=== PATIENT | male | born 1990 | race American Indian/Alaskan Native ===

== ENCOUNTER 2018-11-21 22:50 | Emergency (ER) | payer MEDICAID ==
[~2018-11-21] VITALS: Ht 170.2 cm; Wt 58.5 kg
[2018-11-21 23:43] VITALS: BP 122/75
== END 2018-11-21 23:44 | disposition home or self-care (01) ==
LOC: ER 22:50
DX: M60.271 Foreign body granuloma of soft tissue, not elsewhere classified, right ankle and foot (principal); L03.031 Cellulitis of right toe; F17.200 Nicotine dependence, unspecified, uncomplicated; F12.10 Cannabis abuse, uncomplicated
CPT/HCPCS: 99283

== ENCOUNTER 2022-07-16 17:14 | Emergency (ER) | payer MEDICAID, OTHER ==
[~2022-07-16] VITALS: Ht 170.2 cm; Wt 75.0 kg
[2022-07-16] MEDS ORDERED: KETOROLAC 30MG/ML VIAL IV STA (18:23)
[2022-07-16] MEDS ORDERED: SODIUM CHLORIDE 0.9% 1,000 ML IV ONE (18:30)
[2022-07-16 19:33] LABS: BASOPHILS % 0.2 % (0.0-2.0); HEMATOCRIT. 40.7 % (42.0-52.0); HEMOGLOBIN. 13.9 g/dL (14.0-18.0); LYMPHOCYTES % 16.8 % (20.0-50.0); MEAN CORPUSCULAR VOLUME 90.4 fL (80.0-94.0); MEAN PLATELET VOLUME 9.1 fl (7.4-10.4); MONOCYTES % 10.6 % (2.0-8.0); NEUTROPHILS % 72.4 % (40.0-76.0); PLATELET 173 x1000/uL (130-400); RED CELL DISTRIBUTION WIDTH 13.8 % (11.6-14.6)
[2022-07-16 19:35] LABS: CHLORIDE 101 mEq/L (98-107)
[2022-07-16 19:39] LABS: PROTHROMBIN TIME 10.3 sec (9.6-11.0)
[2022-07-16] MEDS ORDERED: KETOROLAC 30MG/ML VIAL IV NR (21:00)
[2022-07-17 00:25] VITALS: BP 121/67
== END 2022-07-17 00:26 | disposition home or self-care (01) ==
LOC: ER 17:14
DX: K92.2 Gastrointestinal hemorrhage, unspecified (principal); R51.9 Headache, unspecified
CPT/HCPCS: 36415; 70450; 74176; 80053; 82270; 85025; 85610; 86850; 86900; 86901; 96361; 96374; 99284; J1885; J7030

== ENCOUNTER 2023-03-09 15:36 | Emergency (ER) | payer MEDICAID, OTHER ==
[~2023-03-09] VITALS: Ht 170.2 cm; Wt 68.0 kg
[2023-03-09 15:57] VITALS: BP 132/93
[2023-03-09] MEDS ORDERED: ACETAMINOPHEN 325MG TABLET PO ONE (16:15)
[2023-03-09] MEDS ORDERED: HYDR-4001 MT (20:07)
== END 2023-03-09 21:24 | disposition home or self-care (01) ==
LOC: ER 15:36
DX: S82.891A Other fracture of right lower leg, initial encounter for closed fracture (principal); W18.39XA Other fall on same level, initial encounter; Y93.89 Activity, other specified; Y92.89 Other specified places as the place of occurrence of the external cause; Y99.8 Other external cause status; M25.512 Pain in left shoulder; F12.10 Cannabis abuse, uncomplicated
CPT/HCPCS: 70450; 73030; 73610; 99284; Z7610